=== PATIENT | female | born 1995 | race Caucasian/White ===

== ENCOUNTER 2018-07-23 17:09 | Observation (INO) | payer OTHER, BC ==
[~2018-07-23] VITALS: Ht 167.6 cm; Wt 61.2 kg
[~2018-07-23 17:09] MED LIST: AMIT-104 PO; GUAI-648 PO; METH-543 PO; OXYC-865 PO; PROT10TA PO; TRAM-420 PO
--- NOTE | 2018-07-23 17:17 | ER Report ---
History and Physical Time Seen By MD: 17:17 (ARETHA HAMLIN DO) HPI/ROS CHIEF COMPLAINT: I may have an ectopic HISTORY OF PRESENT ILLNESS: Pt here for evaluation for possible ectopic . Pt states she is approx [address] Reed. Pt had US in office on Sunday which was too early to see IUP. Pts quant on sunday was 880. On Sunday pt repeated quant which was 1000. PT has had left sided pelvic pain. Pt has hx of ectopic and is concerned she has another ectopic. PT denies dizziness. no chest pain. no dysuria. REVIEW OF SYSTEMS: Constitutional: No fever, no chills. Eyes: No discharge. ENT: No sore throat. Cardiovascular: No chest pain, no palpitations. Respiratory: No cough, no shortness of breath. Gastrointestinal: + abdominal pain, no vomiting. Genitourinary: No hematuria. Musculoskeletal: No back pain. Skin: No rashes. Neurological: No headache. (ARETHA HAMLIN DO) Allergies: Coded Allergies: No Known Drug Allergies (Unverified , 07/23/18) Home Meds Active Scripts Ondansetron (ZOFRAN ODT) 4 Mg Tab.rapdis, 4 MG PO Q6H PRN for NAUSEA, #14 TAB.AMY 0 Refills Prov:CHIARA REED MD 07/24/18 Hydrocodone Bit/Acetaminophen (HYDROCODON-ACETAMINOPHEN 5-325) 1 Each Tablet, 1 EACH PO Q4H PRN for PAIN, #20 TAB 0 Refills Prov:CHIARA REED MD 07/23/18 Reported Medications Multivitamin (GUMMI BEAR MULTIVITAMIN) 1 Each Tab.chew, 1 EACH PO, TAB.CHEW 07/24/18 Ketorolac Tromethamine (KETOROLAC TROMETHAMINE) 10 Mg Tab, 10 MG PO Q6H PRN for MIGRAINE, TAB 07/23/18 Protriptyline Hcl (PROTRIPTYLINE HCL) 10 Mg Tablet, 50 MG PO DAILY 09/07/14 Amitriptyline Hcl (AMITRIPTYLINE HCL) 10 Mg Tablet, 10 MG PO QHS, #5 TAB TAKE ONE TABLET BY MOUTH AT BEDTIME 09/07/14 Discontinued Scripts Methocarbamol (ROBAXIN-750) 750 Mg Tablet, 1 TAB PO TID PRN for muscle spasm relief, #20 Prov:MT WHITE DO 03/28/16 Oxycodone Hcl/Acetaminophen (PERCOCET 5-325 MG TABLET) 1 Each Tablet, 1-2 EACH PO Q4-6H PRN for PAIN, #20 Prov:MT WHITE DO 03/28/16 Past Medical/Surgical History Pmhx: ectopic, migraines (LAURORA,ARETHA V DO) Reviewed Nurses Notes: Yes (LAURORA,ARETHA V DO) Hx Smoking: No Smoking Status: Never Smoker Hx Substance Use Disorder: No Hx Alcohol Use: No (LAURORA,ARETHA V DO) Constitutional Vital Sign - Last 24 Hours 07/23/18 07/23/18 07/23/18 07/23/18 17:09 17:14 17:16 17:30 Temp 98.5 Pulse 78 88 Resp 18 B/P (MAP) 138/80 (99) 138/80 116/68 (84) Pulse Ox 98 O2 Delivery Room Air 07/23/18 07/23/18 07/23/18 07/23/18 17:39 18:00 18:09 18:30 Pulse 75 69 B/P (MAP) 100/66 (77) 109/58 (75) Pulse Ox 96 97 O2 Delivery Room Air Room Air 07/23/18 07/23/18 07/23/18 07/23/18 18:35 19:00 19:05 19:22 Pulse 84 85 B/P (MAP) 90/50 (63) 101/69 (80) Pulse Ox 94 97 O2 Delivery Room Air Room Air 07/23/18 07/23/18 07/23/18 07/23/18 19:30 19:35 19:40 20:00 Pulse 95 84 B/P (MAP) 91/58 (69) 122/60 (80) Pulse Ox 97 96 O2 Delivery Room Air Room Air 07/23/18 20:10 Pulse 89 Pulse Ox 97 O2 Delivery Room Air (KIMBERLY FAUST MD) Physical Exam General Appearance: The patient is alert, has no immediate need for airway protection and no signs of toxicity. Eyes: Pupils equal and round no pallor or injection, EOMI ENT: no pharyngeal erythema or exudates, Mucous membranes are moist Respiratory: There are no retractions, lungs are clear to auscultation. Cardiovascular: Regular rate and rhythm. pulses are equal and symmetrical Gastrointestinal: Abdomen is soft and non tender, no masses, bowel sounds normal, no guarding, no rigidity or rebound Neurological: Cranial nerves II-XII grossly intact, no sensory or motor loss Skin: Warm and dry, no rashes. Musculoskeletal: Neck is supple non tender, no vertebral tenderness Extremities are nontender, non swollen and have full range of motion. DIFFERENTIAL DIAGNOSIS: After history and physical exam differential diagnosis was considered for ectopic , ovarian cyst, torsion (LAURORA,ARETHA V DO) Medical Decision Making Data Points Result Diagram: 07/23/18 1720 07/23/18 2312 Laboratory Hematology Test 07/23/18 17:20 07/23/18 19:20 Red Blood Count 5.08 M/uL (4.17-5.56) Mean Corpuscular Volume 94.6 fL (80.0-96.0) Mean Corpuscular Hemoglobin 32.5 pg (26.0-33.0) Mean Corpuscular Hemoglobin Concent 34.4 g/dL (32.0-36.0) Red Cell Distribution Width 13.0 % (11.5-14.5) Mean Platelet Volume 9.8 fL (7.2-11.1) Neutrophils (%) (Auto) 56.6 % (39.4-72.5) Lymphocytes (%) (Auto) 32.4 % (17.6-49.6) Monocytes (%) (Auto) 9.4 % (4.1-12.4) Eosinophils (%) (Auto) 1.1 % (0.4-6.7) Basophils (%) (Auto) 0.5 % (0.3-1.4) Nucleated RBC Relative Count (auto) 0.0 /100WBC Neutrophils # (Auto) 5.0 K/uL (2.0-7.4) Lymphocytes # (Auto) 2.8 K/uL (1.3-3.6) Monocytes # (Auto) 0.8 K/uL (0.3-1.0) Eosinophils # (Auto) 0.1 K/uL (0.0-0.5) Basophils # (Auto) 0.0 K/uL (0.0-0.1) Nucleated RBC Absolute Count (auto) 0.00 K/uL Human Chorionic Gonadotropin, Quant 1013 mIU/ml Urine Color Straw Urine Clarity Clear Urine pH 6.0 pH (4.8-9.5) Urine Specific Chadwick 1.008 Urine Protein Negative mg/dL (NEGATIVE) Urine Glucose (UA) Negative mg/dL (NEGATIVE) Urine Ketones 20 mg/dL (NEGATIVE) Urine Blood Negative (NEGATIVE) Urine Nitrite Negative (NEGATIVE) Urine Bilirubin Negative (NEGATIVE) Urine Urobilinogen Negative mg/dL (0.2-1.9) Urine Leukocyte Esterase Negative (NEGATIVE) Urine RBC None /HPF (0-2/HPF) Urine WBC None /HPF (0-5/HPF) Urine Squamous Epithelial Cells Many /LPF (</=FEW) Urine Bacteria Negative /HPF (NONE-FEW) Urine Mucus Few /HPF (NONE-FEW) Chemistry Test 07/23/18 17:20 07/23/18 19:20 White Blood Count 8.8 k/uL (4.5-11.0) Red Blood Count 5.08 M/uL (4.17-5.56) Hemoglobin 16.5 g/dL (12.0-16.0) Hematocrit 48.0 % (34.0-47.0) Mean Corpuscular Volume 94.6 fL (80.0-96.0) Mean Corpuscular Hemoglobin 32.5 pg (26.0-33.0) Mean Corpuscular Hemoglobin Concent 34.4 g/dL (32.0-36.0) Red Cell Distribution Width 13.0 % (11.5-14.5) Platelet Count 226 K/uL (150-450) Mean Platelet Volume 9.8 fL (7.2-11.1) Neutrophils (%) (Auto) 56.6 % (39.4-72.5) Lymphocytes (%) (Auto) 32.4 % (17.6-49.6) Monocytes (%) (Auto) 9.4 % (4.1-12.4) Eosinophils (%) (Auto) 1.1 % (0.4-6.7) Basophils (%) (Auto) 0.5 % (0.3-1.4) Nucleated RBC Relative Count (auto) 0.0 /100WBC Neutrophils # (Auto) 5.0 K/uL (2.0-7.4) Lymphocytes # (Auto) 2.8 K/uL (1.3-3.6) Monocytes # (Auto) 0.8 K/uL (0.3-1.0) Eosinophils # (Auto) 0.1 K/uL (0.0-0.5) Basophils # (Auto) 0.0 K/uL (0.0-0.1) Nucleated RBC Absolute Count (auto) 0.00 K/uL Human Chorionic Gonadotropin, Quant 1013 mIU/ml Urine Color Straw Urine Clarity Clear Urine pH 6.0 pH (4.8-9.5) Urine Specific Chadwick 1.008 Urine Protein Negative mg/dL (NEGATIVE) Urine Glucose (UA) Negative mg/dL (NEGATIVE) Urine Ketones 20 mg/dL (NEGATIVE) Urine Blood Negative (NEGATIVE) Urine Nitrite Negative (NEGATIVE) Urine Bilirubin Negative (NEGATIVE) Urine Urobilinogen Negative mg/dL (0.2-1.9) Urine Leukocyte Esterase Negative (NEGATIVE) Urine RBC None /HPF (0-2/HPF) Urine WBC None /HPF (0-5/HPF) Urine Squamous Epithelial Cells Many /LPF (</=FEW) Urine Bacteria Negative /HPF (NONE-FEW) Urine Mucus Few /HPF (NONE-FEW) Urinalysis Test 07/23/18 19:20 Urine Color Straw Urine Clarity Clear Urine pH 6.0 pH (4.8-9.5) Urine Specific Chadwick 1.008 Urine Protein Negative mg/dL (NEGATIVE) Urine Glucose (UA) Negative mg/dL (NEGATIVE) Urine Ketones 20 mg/dL (NEGATIVE) Urine Blood Negative (NEGATIVE) Urine Nitrite Negative (NEGATIVE) Urine Bilirubin Negative (NEGATIVE) Urine Urobilinogen Negative mg/dL (0.2-1.9) Urine Leukocyte Esterase Negative (NEGATIVE) Urine RBC None /HPF (0-2/HPF) Urine WBC None /HPF (0-5/HPF) Urine Squamous Epithelial Cells Many /LPF (</=FEW) Urine Bacteria Negative /HPF (NONE-FEW) Urine Mucus Few /HPF (NONE-FEW) (KIMBERLY FAUST MD) Microbiology Microbiology Date/Time Source Procedure Growth Status 07/23/18 19:06 Vaginal Wet Prep - Final Complete (KIMBERLY FAUST MD) EKG/Imaging Imaging OB Ultrasound < 14 weeks Additional Pertinent history: Pelvic pain. COMPARISON STUDIES: None available FINDINGS: Gestational sac: intrauterine and unremarkable Yolk sac: Not visualized pole: Not visualized Estimated gestational age: 4 weeks and 6 days based on average [place]-rump length of 0.33 cm. PRASANNA: 03/26/2019 by ultrasound in 03/22/2019 clinically. Subchorionic hemorrhage: none Uterus: gravid, otherwise negative Maternal ovaries: Both ovaries are normal with normal blood flow. Tiny bit of free fluid about the right ovary. Adnexa: No adnexal mass lesion or focal abnormality. Free pelvic fluid: Mild IMPRESSION: 1. There is a small cystic structure within the endometrium which may represent early gestational sac. No pole is identified. Suggest follow-up clinically and laboratory values to assess for early . Follow-up imaging as indicated. No indication of extra uterine . 2. Mild amount free fluid in pelvis may be physiologic. There is a very small amount of free fluid around right ovary which is nonspecific but could represent a previous small ruptured cyst. Report Dictated By: Jw Shearer at 07/23/2018 6:45 PM (KIMBERLY FAUST MD) ED Course/Re-evaluation Clinical Indication for ER IV: IV Access ED Course US called in immediately on pts arrival. 07/23/2018 5:57:30 pm Pt still in US. Signed out to Dr. Faust. Dr. Louise is aware of pt in ed Decision to Disposition Date: Jul 23, 2018 Decision to Disposition Time: 22:00 (ARETHA HAMLIN DO) ED Course I assumed care of this patient at shift change after discussing with Dr. Hamlin. Ultrasound came back as noted above. Pelvic exam was done after this and did have a lot of pain but no bleeding. There was a large amount of white thick discharge in the vagina. Wet prep obtained. Urinalysis obtained. Wet prep does show clue cells. Urinalysis negative for infection. Discussed with Dr. Reed who came to evaluate the patient. He'll be taking the patient to the OR for laparoscopy Decision to Disposition Date: Jul 23, 2018 Decision to Disposition Time: 20:30 (KIMBERLY FAUST MD) Depart Departure Latest Vital Signs Vital Signs Date Time Temp Pulse Resp B/P (MAP) Pulse Ox O2 Delivery O2 Flow Rate FiO2 07/23/18 20:10 89 97 Room Air 07/23/18 20:00 122/60 (80) 07/23/18 17:16 98.5 18 (KIMBERLY FAUST MD) Impression: Primary Impression: Pelvic pain Condition: Condition Unchanged Disposition: ADMIT FROM ER TO OR New Scripts Ondansetron (ZOFRAN ODT) 4 Mg Tab.rapdis 4 MG PO Q6H PRN for NAUSEA, #14 TAB.AMY 0 Refills Prov: CHIARA REED MD 07/24/18 Hydrocodone Bit/Acetaminophen (HYDROCODON-ACETAMINOPHEN 5-325) 1 Each Tablet 1 EACH PO Q4H PRN for PAIN, #20 TAB 0 Refills Prov: CHIARA REED MD 07/23/18 ARETHA HAMLIN DO Jul 23, 2018 17:17 KIMBERLY FAUST MD Jul 23, 2018 18:15
[2018-07-23] MEDS ORDERED: KET10 PO (17:24)
[2018-07-23] MEDS ORDERED: fentaNYL CITR 100 MCG/2 ML AMP IVP ONE ×2 (17:25→18:20)
[2018-07-23] MEDS ORDERED: NS(*) 0.9% 1000 ML BAG 1,000 ML IV ONE (17:25)
[2018-07-23 17:42] LABS: PLATELET COUNT, AUTOMATED 226 K/uL (150-450)
--- NOTE | 2018-07-23 18:51 | RADIOLOGY IMAGING REPORT ---
FACILITY: [facility] - [place] PATIENT NAME: Marie Gibson : 1995 MR: [id number] V: [id number] EXAM DATE: ORDERING PHYSICIAN: ARETHA HAMLIN TECHNOLOGIST: Location: [facility] - [place] Patient: Marie Gibson : 1995 Visit/Account:[id number] Date of Sevice: 07/23/2018 OB Ultrasound < 14 weeks Additional Pertinent history: Pelvic pain. COMPARISON STUDIES: None available FINDINGS: Gestational sac: intrauterine and unremarkable Yolk sac: Not visualized pole: Not visualized Estimated gestational age: 4 weeks and 6 days based on average [place]-rump length of 0.33 cm. PRASANNA: 03/26/2019 by ultrasound in 03/22/2019 clinically. Subchorionic hemorrhage: none Uterus: gravid, otherwise negative Maternal ovaries: Both ovaries are normal with normal blood flow. Tiny bit of free fluid about the ri ght ovary. Adnexa: No adnexal mass lesion or focal abnormality. Free pelvic fluid: Mild IMPRESSION: 1. There is a small cystic structure within the endometrium which may represent early gestational sac . No pole is identified. Suggest follow-up clinically and laboratory values to assess for early . Follow-up imaging as indicated. No indication of extra uterine . 2. Mild amount free fluid in pelvis may be physiologic. There is a very small amount of free fluid ar ound right ovary which is nonspecific but could represent a previous small ruptured cyst. Report Dictated By: Jw Shearer at 07/23/2018 6:45 PM Report E-Signed By: Jw Shearer at 07/23/2018 6:47 PM [email or web address]
[2018-07-23] MEDS ORDERED: ONDANSETRON 4 MG/2 ML VIAL IVP ONE (18:55)
[2018-07-23] MEDS ORDERED: NORMOSOL R SOLN(*) 1000 ML BAG 1,000 ML IV ONE (20:28)
[2018-07-23] MEDS ORDERED: DEXAMETHASONE SOD PHOS 10MG/ML ONE (20:32)
[2018-07-23] MEDS ORDERED: ONDANSETRON 4 MG/2 ML VIAL ONE (20:32)
[2018-07-23] MEDS ORDERED: fentaNYL CITR 100 MCG/2 ML AMP ONE ×3 (20:32→23:32)
[2018-07-23] MEDS ORDERED: MIDAZOLAM 2 MG/2 ML VIAL ONE (20:32)
[2018-07-23] MEDS ORDERED: LIDOCAINE MPF 1% 5 ML VIAL ONE (20:32)
[2018-07-23] MEDS ORDERED: PROPOFOL EMUL(*) 10MG/ML 20 ML 20 ML ONE (20:32)
[2018-07-23] MEDS ORDERED: ROPIVACAINE 0.2% 20 ML VIAL ONE (20:32)
[2018-07-23] MEDS ORDERED: KETOROLAC 30 MG/ML VIAL ONE (22:12)
[2018-07-23] MEDS ORDERED: SUGAMMADEX SOD 500 MG/5 ML SDV ONE (22:12)
[2018-07-23] MEDS ORDERED: LR(*) 1000 ML BAG 1,000 ML IV ONE (22:42)
--- NOTE | 2018-07-23 22:42 | Post Operative Note ---
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 Note - BELT OPERATOR Operative Day Date: Jul 23, 2018 Time: 22:30 Physicians Surgeon: Esdras Anesthesia: [id number] Diagnosis Pre-Op Diagnosis: Ectopic LLQ abdominal pain Post-Op Diagnosis: Pelvic peritoneal endometriosis Procedure Findings: endometriosis of left ovary, left posterior ovarian fossa no ectopic seen normal tubes bilaterally Procedure(s): Dilation and curretage Diagnostic laparoscopy Biopsy of pelvic peritoneum Specimen Removed:(Maybe N/A): Uterine currettings MARU biopsy Left posterior ovarian fossa peritoneum Complications: none #[id number] Fluids Fluids: 1100 ml Estimated Blood Loss: minimal Dictated Date OP Note Dictated: Jul 23, 2018 Time OP Note Dictated: 22:33 Copies to: CHIARA REED MD ; CHIARA REED MD Jul 23, 2018 22:42
[2018-07-23] MEDS ORDERED: LOR5/325 PO (22:45)
[2018-07-23] MEDS ORDERED: APAP/HYDROCODONE 325/5 TAB PO PRN (22:45)
--- NOTE | 2018-07-23 22:49 | Short(Outpt) Discharge Summary ---
Discharge Summary Reason for Hosp/Final Diag: (1) Endometriosis, pelvic peritoneum Hospital Course & Plan: s/p L-scope diagnostic - no ectopic found Will treat with MTX 50 mg/m2 (2) LLQ abdominal pain (3) Ectopic Departure Discharge to: Home, Self Care Discharge Instructions Home Meds Active Scripts Hydrocodone Bit/Acetaminophen (HYDROCODON-ACETAMINOPHEN 5-325) 1 Each Tablet, 1 EACH PO Q4H PRN for PAIN, #20 TAB 0 Refills Prov:CHIARA REED MD 07/23/18 Reported Medications Ketorolac Tromethamine (KETOROLAC TROMETHAMINE) 10 Mg Tab, 10 MG PO Q6H PRN for MIGRAINE, TAB 07/23/18 Protriptyline Hcl (PROTRIPTYLINE HCL) 10 Mg Tablet, 50 MG PO DAILY 09/07/14 Amitriptyline Hcl (AMITRIPTYLINE HCL) 10 Mg Tablet, 10 MG PO QHS, #5 TAB TAKE ONE TABLET BY MOUTH AT BEDTIME 09/07/14 Discontinued Scripts Methocarbamol (ROBAXIN-750) 750 Mg Tablet, 1 TAB PO TID PRN for muscle spasm relief, #20 Prov:MT WHITE DO 03/28/16 Oxycodone Hcl/Acetaminophen (PERCOCET 5-325 MG TABLET) 1 Each Tablet, 1-2 EACH PO Q4-6H PRN for PAIN, #20 Prov:MT WHITE DO 03/28/16 Follow up Referrals: SOLAR ENGINEER - In One Week @ [facility] with CHIARA REED MD Diet: Regular Activity: As Tolerated, No Heavy Lifting, No Exertion Copies to: CHIARA REED MD ; CHIARA REED MD Jul 23, 2018 22:49
[2018-07-23] MEDS ORDERED: METHOTREXATE SOD 50 MG/2 ML IM ONE (23:05)
[2018-07-24] VITALS (20 sets, daily range): BP systolic 84–115; BP diastolic 36–51
[2018-07-24] MEDS ORDERED: ACETAMINOPHEN(*)1000 MG/100 ML 100 ML IVPB ONE (00:01)
[2018-07-24] MEDS: LR(*) 1000 ML BAG 1,000 ML IV SCH ×2 (00:37→06:27)
[2018-07-24] MEDS: ONDANSETRON 4 MG/2 ML VIAL IVP PRN ×2 (00:42→12:25)
[2018-07-24] MEDS: HYDROmorphone HCL 2 MG/ML SDV IVP PRN ×2 (05:40→07:48)
[2018-07-24] MEDS ORDERED: MULT-991 PO (05:43)
[2018-07-24] MEDS: KETOROLAC 30 MG/ML VIAL IVP SCH ×2 (06:26→06:45)
--- NOTE | 2018-07-24 08:17 | OPERATIVE REPORT 1 ---
EVENT DATE: July 23, 2018 SURGEON: Marek Dewitt MD ANESTHESIOLOGIST: [*] ANESTHESIA: General endotracheal. PREOPERATIVE DIAGNOSIS 1. Ectopic . 2. Left lower quadrant abdominal pain. POSTOPERATIVE DIAGNOSIS Pelvic peritoneal endometriosis. PROCEDURE PERFORMED 1. Dilatation and curettage. 2. Diagnostic laparoscopy. 3. Biopsy of pelvic peritoneum. 4. Laparoscopic biopsy of left ovary. ESTIMATED BLOOD LOSS Minimal. FLUIDS 1100 cc IV crystalloid. INDICATIONS Marie is a pleasant 22-year-old 2, para 0 who presented to my office last Sunday with positive test and abdominal pain. She had a quantitative HCG drawn at that time of 880 and an ultrasound in my office that did not reveal a definitive intrauterine, although there was a small hypoechoic area within the endometrium that may represent a gestational sac. Neither adnexa contained any cystic structures or any evidence of an ectopic . It was decided to follow her quants and she returned on Sunday for a repeat quant, which was returned in the range of 1200 when it should have been actually over 2000. This confirmed an abnormal rise in her quants and today she reported a sudden increase in severe left lower quadrant abdominal pain to the point where she was not able to walk. I had her come to the emergency room, where repeat ultrasound revealed a similar finding in terms of an hypoechoic area within the endometrium but very small. No clear evidence of an intrauterine and no visible adnexal concern for ectopic. A small amount of free fluid in the pelvis. It was discussed with her and her family the option of proceeding with medical management of ectopic versus surgical but considering her significant pain, requiring narcotic analgesia in the emergency room, and concern over persisting pain and having to return to the emergency room for fear of a ruptured ectopic, we elected to proceed with a diagnostic laparoscopy. The risks, benefits and alternatives were explained in detail. FINDINGS The uterus sounded to a depth of 8 cm, retroverted, normal appearing endometrial curettings. No obvious seen from the dilatation and curettage. Laparoscopically, there was a normal appearing uterus and tubes bilaterally. There did appear to be a scant amount of bloody discharge from each tube that probably represented retrograde menstruation from the dilatation and curettage. There were no visible dilations to either tube. Both tubes appeared soft and supple in their appearance and with manipulation with no indurated or firm areas. The tubes were milked along their entire length with laparoscopic instruments in order to confirm there were no hardened or dilated areas. The right ovary was normal in appearance in all respect. The left ovary on its posterior surface had a dark brownish to reddish tissue present on the ovarian capsule that had the appearance of endometriosis. However, also there was a slight concern that could represent an ectopic. The specimen was biopsied and sent to pathology. In the left ovarian fossa, there was white scarring of the pelvic peritoneum as well as a Valentín window in that location, consistent with endometriosis. In the posterior cul-de-sac, there was a Valentín window. There was a scant amount of bloody peritoneal fluid. Otherwise, normal pelvis. DESCRIPTION OF PROCEDURE The patient was brought to the operating room with a working IV and placed in the dorsal supine position. She was placed under general endotracheal anesthesia and moved to the dorsal lithotomy position. She was then prepped and draped in the usual sterile fashion. A weighted speculum was placed in the vagina. The cervix was grasped on the anterior lip with a single tooth tenaculum. It was carefully sounded, retroverted to a depth of 8 cm. The cervix was then carefully dilated to a size 7 Hegar dilator. A small Bovine curette was passed through the cervix into the uterus and all four quadrants of the uterine wall were curetted and the specimen was retrieved and sent to pathology. An 8 cm MARIANO uterine manipulator was then selected, assembled and passed through the cervix into the uterus, balloon inflated and secured. All other instruments were then removed. The legs were brought back to the supine position. The bladder had been drained at prep. Gloves were changed and we proceeded with laparoscopy by infiltrating the blankets with 0.2% Naropin. A 5 mm stab incision was made and the Veress needle was passed through this incision into the abdomen while stabilizing the anterior abdominal wall and the pneumoperitoneum was created to an intraabdominal pressure of 20 mmHg. This was removed and a 5 mm bladeless trocar was passed through this incision into the abdomen under direct visualization with a scope and performed without incident. Two additional 5 mm ports were placed in the suprapubic and left lower quadrant location under similar technique and via direct visualization. The abdomen and pelvis were surveyed with the above findings noted. Laparoscopic instruments were used to perform the above mentioned procedures. Biopsy of the left ovary by grasping the tissue observed, putting it on medial stretch and excising with Endo scissors and sending the specimen to pathology. The same was performed in the left posterior ovarian fossa by grasping the white scarred pelvic peritoneal tissue, placing it on medial stretch and excising with scissors. All specimens were sent to pathology. The pelvis was copiously irrigated and suctioned dry. The right and left fallopian tubes were milked along their length using the blunt probe and laparoscopic equipment to manipulate with no visible ectopic found. Normal appearing right upper quadrant. The procedure was terminated. Pneumoperitoneum was suctioned out after the entire pelvis had been irrigated and suctioned out. All instruments were removed from the abdomen. Skin incisions were repaired with 4-0 Monocryl simple subdermal and covered with Dermabond skin adhesive. She tolerated the procedure well. Sponge, lap, needle and instrument counts were all correct x3. MTDD
[2018-07-24] MEDS ORDERED: PROMETHAZINE 25 MG/ML 1 ML AMP IVP PRN (10:20)
--- NOTE | 2018-07-24 10:47 | OB/GYN Progress Note ---
OB Subjective Progress Notes Subjective Pain well controlled with IV pain medication. Some nausea related to narcotic. Has not voided much but was dehydrated. GI: POS Nausea Pain: Mild OB Objective Physical Exam Vital Signs Date Time Temp Pulse Resp B/P (MAP) Pulse Ox O2 Delivery O2 Flow Rate FiO2 07/24/18 07:15 84 07/24/18 07:15 56 16 93/44 (60) Room Air 07/24/18 07:00 2.0 07/24/18 05:30 98.8 Intake and Output 07/24/18 07:00 Intake Total 4350 ml Balance 4350 ml Intake Oral 50 ml IV Total 2700 ml Other 1600 ml General Appearance: Alert/Awake/No Acute Distress Neurological: No Gross deficits Cardiovascular: Normal Rhythm & Peripheral Pulses, Regular Rate and Rhythm Respiratory: No Respiratory Distress, Clear to Auscultation Abdomen: Soft, Non-Tender, Non-Distended, Bowel Sounds Present (hypoactive) Incision: Clean, Dry, Intact, Dermabond Integumentary: Skin Intact without Lesions or Rash Psychological: Alert & Oriented X3, Appropriate Mood & Affect Result Diagram: 07/23/18 1720 07/23/18 2312 Assessment and Plan [facility] [employer] [facility] WORKER Plan: Discharge Home Today Problems: (1) Endometriosis, pelvic peritoneum Assessment & Plan: Will transition her to PO pain meds. If continues well, home later today. (2) LLQ abdominal pain (3) Ectopic Assessment & Plan: Methotrexate dosed last night. Advised to have her quant HCG tested at day 4 and 7 post dosing. Will verify at least 15% drop in value at that time. (4) Encounter for postoperative care Assessment & Plan: Reviewed expected recovery and precautions. Weight restrictions x 2 weeks and may go back to work next week if feeling well. CHIARA REED MD Jul 24, 2018 10:47
[2018-07-24] MEDS ORDERED: ONDA4TAB PO (10:50)
[2018-07-24] MEDS: APAP/HYDROCODONE 325/7.5 TAB PO PRN ×2 (12:25→16:44)
[2018-07-24] MEDS ORDERED: KETOROLAC 30 MG/ML VIAL IVP SCH (15:00)
== END 2018-07-24 10:51 | disposition home or self-care (01) ==
LOC: ER 17:32 → OR 20:13 → PED 07-24 00:15
PROVIDERS: ADMIT Obstetrics & Gynecology; ATTEND Obstetrics & Gynecology
DX: O26.891 Other specified pregnancy related conditions, first trimester (principal); Z3A.01 Less than 8 weeks gestation of pregnancy
CPT/HCPCS: 36415; 49321; 59812; 76817; 81001; 84702; 85025; 86850; 86900; 86901; 87210; 88305; 96361; 96365; 96375; 96376; 99284; G0378; J0131; J1100; J1170; J1885; J2001; J2250; J2405; J2704; J2795; J3010; J7030; J7120; J9260; 82040; 82247; 82310; 82374; 82435; 82565; 82947; 84075; 84132; 84155; 84295; 84450; 84460; 84520

== ENCOUNTER → 2018-07-27 | Outpatient (CLI) | payer OTHER, BC ==
[~2018-07-27] MED LIST changes: +KET10 PO; +LOR5/325 PO; +MULT-991 PO; +ONDA4TAB PO
== END ==
LOC: LAB 10:41
PROVIDERS: ATTEND Obstetrics & Gynecology
DX: O00.90 Unspecified ectopic pregnancy without intrauterine pregnancy (principal); Z51.81 Encounter for therapeutic drug level monitoring
CPT/HCPCS: 36415; 84702

== ENCOUNTER → 2018-07-30 | Outpatient (CLI) | payer OTHER, BC | LOC: LAB 08:11 | PROVIDERS: ATTEND Obstetrics & Gynecology | DX: O00.90 Unspecified ectopic pregnancy without intrauterine pregnancy (principal); Z51.81 Encounter for therapeutic drug level monitoring | CPT/HCPCS: 36415; 84702 ==

== ENCOUNTER → 2019-01-29 | Outpatient (CLI) | payer OTHER, BC ==
--- NOTE | 2019-01-29 17:42 | EKG ---
FACILITY: [facility] - [place], [place] PATIENT NAME: DEYA ALEXANDER : [id number] MR: [id number] V: [id number] EXAM DATE: ORDERING PHYSICIAN: ISABELA SCHWARTZ TECHNOLOGIST: Test Reason : R42 Blood Pressure : / mmHG Vent. Rate : 051 BPM Atrial Rate : 051 BPM P-R Int : 144 ms QRS Dur : 088 ms QT Int : 426 ms P-R-T Axes : 054 078 054 degrees QTc Int : 392 ms Sinus bradycardia with sinus arrhythmia Possible Left atrial enlargement Borderline ECG No previous ECGs available Confirmed by ANGEL GORMAN ([id number]) on 01/30/2019 6:38:46 AM Referred By: Confirmed By:ANGEL GORMAN
== END ==
LOC: RESP 16:32
PROVIDERS: ATTEND Nurse Practitioner Family
DX: R94.31 Abnormal electrocardiogram [ECG] [EKG] (principal)
CPT/HCPCS: 93005